=== PATIENT | male | born 1975 | race Caucasian/White ===

== ENCOUNTER 2018-12-05 22:36 | Emergency (ER) | payer SELFPAY ==
[2018-12-05 22:39] VITALS: BP 131/88; PULSE 87; RESP 18; TEMP 36.5; O2SAT 99; BMI 24.3
--- NOTE | 2018-12-05 23:11 | RAD_ITS ---
STUDY: X-RAY - LEFT CLAVICLE REASON FOR EXAM: Male, 43 years old. Injury. TECHNIQUE: 2 view(s) of the clavicle. COMPARISON: None. FINDINGS: There is a completely displaced and overriding fracture of the mid clavicle. Distal fracture fragment is more than one shaft width below the proximal fragment. No significant angulation. Normal acromioclavicular articulation. Normal visualized sternoclavicular articulation. Normal visualized pulmonary apex. RAD/Clavicle IMPRESSION: Completely displaced fracture of the mid clavicle. Electronically Signed: Samir Boone MD at 23:36 EDT , Service support ,
[2018-12-05] MEDS: Ondansetron ODT 4 MG Tablet PO (23:23)
[2018-12-05] MEDS: HYDROcodone Bitartrate/Apap 5/325 Tablet PO (23:23)
--- NOTE | 2018-12-05 23:37 | ED.VIS.GEN ---
History of Present Illness Chief Complaint: Upper Extremity Injury Detail of Chief Complaint: Left clavicle injury Informant: Patient Onset: Today Current Severity: Moderate Maximum Severity: Severe Worsened by: Movement Narrative: Patient presents after a fall at home. He states he was drinking too much time was chasing after his dog. He lost his balance and hit his shoulder against the wall. He has broken his left collarbone 3 times previously. He states he is pretty sure he broke it again. He is right-hand dominant. He denies pain down the left arm or paresthesias. Past Medical History - Allergies and Home Meds Allergies/Adverse Reactions: Allergies lidocaine Adverse Reaction (Verified 12/05/18 22:36) Upset Stomach Primary Care Physician: Care Physician,No Primary [Primary Care Provider] - Prior records reviewed: Yes Past Medical History: - - Reviewed Lives: Alone Smoking Status: Former smoker Alcohol: Occasional Review of Systems General: Denies: Chills, Fever Eyes: Denies: Visual changes - bilaterally ENT: Denies: Bilateral ear pain Cardiovascular: Reports: Chest pain - Along left clavicle Respiratory: Denies: Dyspnea, Cough Gastrointestinal: Denies: Abdominal pain, Nausea, Vomiting, Diarrhea Genitourinary: Denies: Dysuria Musculoskeletal: Denies: Extremity Pain Skin: Denies: Rash Neurological: Denies: Headache, Parasthesia, Numbness Hematologic: Denies: Easy bruising Physical Exam Vital Signs/Narrative: Vital Signs Temp Pulse Resp BP Pulse Ox 12/05/18 22:39 97.7 F L 87 18 131/88 H 99 Inital Vital Signs reviewed: Yes General: Well nourished, Well developed Head: Normocephalic ENT: Moist mucous membranes Neck: Supple Cardiovascular: Regular rate, Regular rhythm Respiratory: No distress, CTA bilaterally Abdomen: Soft, Nontender Extremities: - - Patient with tenderness along left clavicle with a palpable deformity. No tenderness over the humeral head or remainder of the arm. He has a strong hand grasp with normal sensation and cap refill. Skin: Normal color Neurological: Alert, Oriented x3 Psychological: Normal affect Diagnostic/Tx/Re-eval Impressions Clavicle X-Ray 12/05/18 23:11 IMPRESSION: Completely displaced fracture of the mid clavicle. Electronically Signed: Samir Boone MD at 23:36 EDT , Service support , 12/05/18 23:11 Xray Clavicle [Clavicle] [RAD] Stat - Medical Decision Making Patient was given [place] for pain here. On repeat evaluation is resting comfortably. Test results are discussed with him. He will be given a sling and swath. He does have a friend coming to pick him up tonight. He will not be driving back home tonight. He lives in the [facility] will be referred to orthopedics there for follow-up. ED Disposition - Plan for ED Patient: Disposition: Home or Assisted Living Diagnosis: Closed left clavicular fracture Instructions: FRACTURE, Clavicle Prescriptions: Naproxen [Naprosyn] 500 mg PO BID PRN PRN #20 tablet PRN Reason: Pain Score 1-10/10 Hydrocodone Bitart/Apap 5-325 [[place] 5MG-325MG] 1 tablet PO Q6H PRN PRN 3 Days #10 tablet PRN Reason: Pain Referrals: Marco Rios III, MD [NON-STAFF] -
[2018-12-06 00:40] VITALS: BP 127/71; PULSE 85; RESP 15; O2SAT 98
== END 2018-12-06 00:55 | disposition home or self-care (01) ==
PROVIDERS: Emergency Provider Emergency Medicine
DX: S42.012A Anterior displaced fracture of sternal end of left clavicle, initial encounter for closed fracture (principal); W19.XXXA Unspecified fall, initial encounter; Y93.89 Activity, other specified; Y92.009 Unspecified place in unspecified non-institutional (private) residence as the place of occurrence of the external cause; Z87.891 Personal history of nicotine dependence
CPT/HCPCS: 73000; 99285